=== PATIENT | male | born 1995 | race African-American/Black ===

== ENCOUNTER 2025-02-19 19:53 | Emergency (ER) | payer OTHER ==
[~2025-02-19] VITALS: Ht 180.3 cm; Wt 104.5 kg
[2025-02-20] MEDS: KETOROLAC 60 MG/2 ML VIAL IM ONE (00:18)
[2025-02-20 00:28] VITALS: BP 130/72; TEMP 97.3; O2SAT 96
== END 2025-02-20 00:32 | disposition home or self-care (01) ==
LOC: M ED 19:53 → EDBD 19:53 → M ED 02-20 00:32
DX: S83.412A Sprain of medial collateral ligament of left knee, initial encounter (principal); W19.XXXA Unspecified fall, initial encounter; Y92.9 Unspecified place or not applicable; Y93.67 Activity, basketball; Y99.9 Unspecified external cause status
CPT/HCPCS: 73564; 96372; 99284; J1885